=== PATIENT | female | born 1975 | race Caucasian/White ===

== ENCOUNTER → 2017-02-19 | Outpatient (CLI) | payer BC ==
--- NOTE | 2017-02-19 12:07 | DIAGNOSTIC IMAGING REPORT ---
CT HEAD WITHOUT CONTRAST (CT) CLINICAL HISTORY: New onset anosmia COMPARISON STUDY: No previous studies for comparison. TECHNIQUE: Axial CT of the brain is performed from the vertex to the skull base. IV contrast was not administered for this examination. A dose lowering technique was utilized adhering to the principles of ALARA. CT DOSE: 690.05 mGycm FINDINGS: No intra or extra-axial mass lesions are visualized. There is no CT evidence of acute cortical infarction. There is no evidence of midline shift. There is no acute hemorrhage. No calvarial fractures are visualized. There is no evidence of pathologic ventricular dilatation. There is no evidence of acute sinusitis IMPRESSION: Normal noncontrast head CT. Electronically signed by: Pb Zacarias M.D. 02/19/2017 12:06 PM Dictated Date/Time: 02/19/2017 12:04 PM
== END | disposition home or self-care (01) ==
LOC: C.CTS 11:47
PROVIDERS: ATTEND Family Medicine
DX: R43.0 Anosmia (principal)

== ENCOUNTER → 2017-06-17 | Outpatient (CLI) | payer OTHER ==
--- NOTE | 2017-06-18 15:21 | MAMMOGRAPHY REPORT ---
BILATERAL FIRST EVER DIGITAL SCREENING MAMMOGRAM TOMOSYNTHESIS WITH CAD: 06/17/2017 CLINICAL HISTORY: Baseline examination. TECHNIQUE: Breast tomosynthesis in addition to standard 2D mammography was performed. Current study was also evaluated with a Computer Aided Detection (CAD) system. COMPARISON: No prior exams were available for comparison. BREAST COMPOSITION: The tissue of both breasts is heterogeneously dense, which may obscure small mas ses. FINDINGS: There is diffuse nodularity of the parenchyma with a conspicuous asymmetry in the lateral posterior right breast, near the fatglandular interface for which additional spot compression tomosy nthesis views and possible ultrasound are recommended to exclude a possible underlying mass. No other suspicious mass, architectural distortion or cluster of microcalcifications is seen bilatera lly. IMPRESSION: ACR BI-RADS CATEGORY 0: INCOMPLETE EVALUATION: NEED ADDITIONAL IMAGING EVALUATION The asymmetry in the lateral, posterior right breast needs additional evaluation. The patient will be called to schedule an appointment. Approximately 10% of breast cancers are not detected with mammography. A negative mammographic report should not delay biopsy if a clinically suggestive mass is present. Radha Suarez M.D. ay/:06/17/2017 15:58:30 Engineering Inspection Assistant: Zamzam LANDRY(Vida)(Michael), [facility] letter sent: Addl Imaging 0 BI-RADS Code: ACR BI-RADS Category 0: Incomplete Evaluation: Need Additional Imaging Evaluation
== END | disposition home or self-care (01) ==
LOC: C.MAMM 08:47
PROVIDERS: ATTEND Nurse Practitioner Family
DX: Z12.31 Encounter for screening mammogram for malignant neoplasm of breast (principal); N64.89 Other specified disorders of breast

== ENCOUNTER → 2017-07-01 | Outpatient (CLI) | payer OTHER ==
[~2017-07-01] MED LIST: GADAVIST IV PRN
--- NOTE | 2017-07-02 15:57 | MAMMOGRAPHY REPORT ---
BREAST MRI OF BOTH BREASTS : 07/01/2017 CLINICAL HISTORY: 42-year-old woman initially called back from baseline screening mammogram for an as ymmetry with possible associated distortion in the superior, posterior right breast. No sonographic correlate was identified but a circumscribed oval solid 7.9 mm mass was incidentally identified in th e right 8:00 breast on ultrasound. Patient presents for MRI primarily to assess for any abnormal enh ancement in the area of asymmetry with possible distortion. COMPARISON: Comparison is made to exams dated: 06/17/2017 mammogram and 06/24/2017 mammogram - [facility]. TECHNIQUE: Using a 1.5 Mariaelena magnet and dedicated breast coil, multisequence axial images were obtain ed through the breasts. After uneventful IV administration of 11 mL of Gadavist, dynamic multiphase contrast-enhanced axial images, and sagittal postcontrast were obtained. Temporal subtraction axial images and 3-D MIP images are provided. Everything was then reviewed on a 3-D workstation, [employer]. FINDINGS: Right breast: There is mild background parenchymal enhancement. There are scattered subcentimeter cy sts in the right breast. There is an oval circumscribed, 9 x 7 x 7 mm mass in the 8:00 middle one th ird of the right breast. Suggested non-enhancing internal septae are identified on the contrast-enha nced sequences. It is T2 hyperintense and predominantly persistent kinetics. 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 There is no other suspicious enhancin g mass, architectural distortion or suspicious kinetics in the right breast. In particular, no abnor mal enhancement in the lateral, posterior right breast in the area of asymmetry was suggested distort ion seen mammographically. Therefore this finding is considered benign and no further close follow-u p is needed at this time. No focal skin thickening or nipple retraction. No suspicious right axilla ry lymphadenopathy. Left breast: There is mild background parenchymal enhancement. There are scattered subcentimeter cys ts in the left breast. No dominant enhancing mass, non-mass enhancement, architectural distortion or suspicious kinetics identified in the left breast. No skin thickening or nipple retraction. No lane picious left axillary lymphadenopathy. IMPRESSION: ACR BI-RADS CATEGORY 4: SUSPICIOUS 1. Ultrasound-guided core biopsy is recommended for a solid oval circumscribed 9 mm mass in the 8:00 right breast incidentally identified on diagnostic ultrasound and corresponding with a mass identifi ed on the current MRI in which features suggest a fibroadenoma. 2. No abnormal mass or non-mass enhancement, suspicious kinetics or architectural distortion in the lateral, posterior right breast near the fatglandular interface in the area of asymmetry with sugges migue distortion seen mammographically. This finding is considered benign and no further workup is nee ded at this time. 3. No MRI evidence of malignancy in the left breast. 4. No suspicious axillary adenopathy bilaterally. Radha Suarez M.D. ay/:07/01/2017 20:40:23 Sweatband Shaper: property management supervisor, [facility] letter sent: Abnormal 4/5 BI-RADS Code: ACR BI-RADS Category 4: Suspicious
== END | disposition home or self-care (01) ==
LOC: C.MRI 06:16
PROVIDERS: ATTEND Nurse Practitioner Family
DX: Z12.31 Encounter for screening mammogram for malignant neoplasm of breast (principal)

== ENCOUNTER → 2017-07-03 | Outpatient (CLI) | payer OTHER ==
--- NOTE | 2017-07-03 11:20 | Discharge Instructions ---
Discharge Instructions Procedure Procedure Date: Jul 03, 2017. Reason for visit: Right Breast Mass. Discharge Discharge Date: Jul 03, 2017. Discharge Diagnosis: status post breast biopsy Instructions Activity Recommendations: Additional Limitations (see below) Return to School/Work: no limitations Recommended Home Diet: No Limitations Provider Instructions: ACTIVITY RECOMMENDATIONS: * No lifting, pushing, pulling or exercising the affected side for three days. RETURN TO SCHOOL/WORK: * You may return to work/school after the procedure, but do not perform any strenuous activities for 24 to 48 hours. MEDICATIONS: * Tylenol (two 325 mg) every four to six hours if needed for mild pain (if not allergic to Tylenol). DIET: * Resume previous diet. SPECIAL CARE INSTRUCTIONS: * Keep biopsy site dry for 24 hours. May shower after 24 hours, but do not soak (bathe) incision. * May remove Tegaderm (plastic patch) tomorrow AFTER showering. * Leave the steri-strips on for one week. Allow the steri-strips to fall off by themselves. If not off after one week, you may remove them. You may place a Bandaid crosswise over the strips, if desired. * Apply ice 10 minutes on and 10 minutes off as needed. * Wear a bra at bedtime to sleep more comfortably for 2-3 days. * Your referring physician should have the results after approximately 5 to 7 business days. * Call for unusual bleeding, fever, drainage, etc or if you have any questions call during normal business hours or after hours call Dr Wright, . FOLLOW UP VISIT: Follow-up with Referring Physician as scheduled. Allergies Coded Allergies: Erythromycin (Verified Allergy, Unknown, ., 07/01/17) Earnestine Hernandez Recommendations: Call your doctor if: * Temperature above 101 degrees * Pain not relieved by pain medicine ordered * There is increased drainage or redness from any incision * You have any unanswered questions or concerns. Your Doctors Instructions noted above were prepared by provider Ailyn Wright. Patient Signature Section: Patient Instructions Signature Page [place] Patient (or Guardian) Signature/Date: I have read and understand the instructions given to me by my caregivers. Caregiver/RN/Doctor Signature/Date: The above-named patient and/or guardian has received patient instructions on this date. + Original Patient Signature Page (only) stays with chart. Please make copy for patient.
--- NOTE | 2017-07-03 15:19 | MAMMOGRAPHY REPORT ---
ULTRASOUND GUIDED BIOPSY RIGHT BREAST: 07/03/2017 CLINICAL HISTORY: Right 8:00 breast mass. PATIENT CONSENT: The procedure, risks and benefits were discussed with the patient and informed writt en consent was obtained. A timeout was performed immediately prior to the procedure. PROCEDURE DESCRIPTION: With ultrasound guidance, aseptic technique, and lidocaine as the local anesth etic (1% lidocaine to anesthetize the skin and 1% lidocaine with epinephrine to anesthetize the deepe r tissues), the mass of concern in the right 8:00 breast was sampled 3 times with a 14-gauge Achieve biopsy needle. Immediately thereafter, with ultrasound guidance, aseptic technique, and lidocaine as the local anesthetic, a metallic localizer clip was placed centrally in the mass. Direct pressure w as applied to the site immediately post procedure and hemostasis was achieved. Postprocedure unilate ral mammograms were performed to confirm placement of the clip in the expected location of the breast mass. The patient tolerated the procedure without complication. She was given wound care instruct ions. The specimens were sent to pathology for analysis. COMPARISON: Comparison is made to exams dated: 07/01/2017 breast MRI, 06/24/2017 mammogram, and 018 mammogram - [facility]. IMPRESSION: ULTRASOUND GUIDED BIOPSY Ultrasound-guided core needle biopsy of the right 8:00 breast mass, with clip placement. The patient will receive pathology results from her referring provider. Ailyn Wright M.D. /:07/03/2017 11:21:07 Cable Ferry Operator: Berkley Pollard, [facility]
--- NOTE | 2017-07-03 15:19 | MAMMOGRAPHY REPORT ---
UNILATERAL RIGHT DIGITAL DIAGNOSTIC MAMMOGRAM TOMOSYNTHESIS: 07/03/2017 CLINICAL HISTORY: Status post right breast biopsy. TECHNIQUE: Breast tomosynthesis in addition to standard 2D mammography was performed. Postprocedura l right CC and ML tomosynthesis images were obtained. COMPARISON: Comparison is made to exams dated: 07/01/2017 breast MRI, 06/24/2017 mammogram, and 018 mammogram - [facility]. BREAST COMPOSITION: The tissue of the right breast is heterogeneously dense, which may obscure small masses. FINDINGS: A new ribbon-shaped biopsy marker clip is seen at the site of the biopsied mass in the rig ht 8:00 breast. No significant postbiopsy hematoma is seen. IMPRESSION: POST PROCEDURE IMAGING FOR MARKER PLACEMENT New biopsy marker clip status post ultrasound guided biopsy of the right 8:00 breast mass. Pathology results are pending. Approximately 10% of breast cancers are not detected with mammography. A negative mammographic report should not delay biopsy if a clinically suggestive mass is present. Ailyn Wright M.D. ah/:07/03/2017 11:37:39 Survey Party Chief: Berkley Pollard [facility] BI-RADS Code: Post Procedure Imaging For Marker Placement
== END | disposition home or self-care (01) ==
LOC: C.MAMM 10:38
PROVIDERS: ATTEND Nurse Practitioner Family
DX: R92.8 Other abnormal and inconclusive findings on diagnostic imaging of breast (principal); N63.10 Unspecified lump in the right breast, unspecified quadrant; D24.1 Benign neoplasm of right breast